=== PATIENT | male | born 1960 | race Caucasian/White ===

== ENCOUNTER 2023-09-22 05:22 | Emergency (ER) | payer OTHER, SELFPAY ==
[2023-09-22 05:24] VITALS: BP 126/85; PULSE 88; RESP 16; TEMP 36.5; O2SAT 97
[2023-09-22 05:26] VITALS: O2SAT 96
[2023-09-22 05:27] VITALS: PULSE 88
[2023-09-22 06:00] LABS: Basophils Absolute Auto 0.1 K/mm3 (0.0-0.1); Basophils Percent Auto 1.3 % (0.2-1.2); Eosinophils Absolute Auto 0.5 K/mm3 (0-0.3); Eosinophils Percent Auto 8.5 % (0-4.4); Hematocrit 39.4 % (42.0-52.0); Hemoglobin 12.6 g/dL (14.0-18.0); Immature Granulocyte Absolute 0.01 K/mm3 (0.00-0.031); Immature Granulocyte Percent A 0.2 % (0-0.5); Lymphocytes Absolute Auto 1.64 K/mm3 (0.9-3.2); Lymphocytes Percent Auto 30.4 % (18.3-44.2); Mean Corpuscular Hemoglobin 28.8 pg (26-34); Mean Corpuscular Volume 90.2 fl (80-100); Mean Platelet Volume 9.9 fl (7.4-10.4); Monocytes Absolute Auto 0.7 K/mm3 (0.1-0.6); Monocytes Percent Auto 12.4 % (2.6-8.5); Neutrophils Absolute Auto 2.5 K/mm3 (1.3-6.7); Neutrophils Percent Auto 47.2 % (45.5-73.1); Platelet Count Result 295 k/mm3 (150-375); Red Blood Count 4.37 M/mm3 (4.6-6.20); Red Cell Distribution Width 13.5 % (11.5-14.5); White Blood Count 5.4 K/mm3 (4.5-10.0)
[2023-09-22 06:09] LABS: Alanine Aminotransferase 20 U/L (6-50); Albumin Level 4.3 g/dL (3.5-5.1); Alkaline Phosphatase 72 U/L (38-126); Anion Gap 9 mmol/L (4-12); Aspartate Amino Transferase 30 U/L (17-59); Bilirubin,Total 0.7 mg/dL (0.2-1.3); Blood Urea Nitrogen 9 mg/dL (9-20); Calcium 9.1 mg/dL (8.4-10.2); Carbon Dioxide 22 mmol/L (22-30); Chloride 106 mmol/L (98-107); Estimated CRCL calculation 70 ml/min; Estimated Glomerular Filt Rate > 60; Glucose 121 mg/dL (65-110); Potassium 3.5 mmol/L (3.4-5.0); Sodium 137 mmol/L (137-145)
--- NOTE | 2023-09-22 06:12 | ED.GENADULT ---
HPI - General Adult General Chief complaint: Seizure Stated complaint: altered mental status/seizure Time Seen by Provider: 09/22/23 05:40 History of Present Illness HPI narrative: Patient is a 7-year-old gentleman who presents emergency department with chief complaint of seizure. Patient has prior history of seizure disorder and takes Keppra. The patient reports he missed his dose of Keppra this evening and then had a generalized seizure and was confused afterwards. The patient reports that he is back to normal now and reports that he has no complaints. Related Data Allergies Allergy/AdvReac Type Severity Reaction Status Date / Time No Known Allergies Allergy Verified 09/22/23 05:52 Review of Systems Review of Systems: A 10 system review of systems was completed on the patient and is negative except for what is stated in the HPI. Nursing and ancillary documentation was reviewed. Exam Narrative: GENERAL: Well-appearing, well-nourished, and in no acute distress. HEAD: Normocephalic, atraumatic. EYES: PERRLA and EOMI. ENT: Nares clear, no rhinorrhea or epistaxis. Mucous membranes moist. NECK: Supple. CHEST: Clear to auscultation. No respiratory distress. HEART: Regular rate and rhythm. No murmur heard. Normal peripheral pulses. ABDOMEN: Soft, nontender, nondistended, normal active bowel sounds. EXTREMITIES: Normal range of motion. No edema. SKIN: Warm, dry, no rash. NEURO: No focal deficits. Alert and oriented x3. PSYCH: Normal mood and affect. Course Vital Signs Vital signs: Vital Signs Temperature 36.5 C 09/22/23 05:24 Pulse Rate 88 09/22/23 05:24 Respiratory Rate 16 09/22/23 05:24 Blood Pressure 126/85 09/22/23 05:24 Pulse Oximetry 97 09/22/23 05:24 Oxygen Delivery Room Air 09/22/23 05:24 Temperature 36.5 C 09/22/23 05:24 Pulse Rate 88 09/22/23 05:27 Respiratory Rate 16 09/22/23 05:24 Blood Pressure 126/85 09/22/23 05:24 Pulse Oximetry 96 09/22/23 05:26 Oxygen Delivery Room Air 09/22/23 05:26 Medical Decision Making [facility] Narrative Medical decision making narrative: Differential diagnosis includes chronic seizure disorder, noncompliance with medications, electrolyte abnormality, infection Patient reported to missing a dose of his medications and is currently asymptomatic. The patient was given an IV dose of Keppra in the emergency department will be discharged home to take his normal doses of Keppra. Vital Signs Vital Signs: Vital Signs Temperature 36.5 C 09/22/23 05:24 Pulse Rate 88 09/22/23 05:24 Respiratory Rate 16 09/22/23 05:24 Blood Pressure 126/85 09/22/23 05:24 Pulse Oximetry 97 09/22/23 05:24 Oxygen Delivery Room Air 09/22/23 05:24 Temperature 36.5 C 09/22/23 05:24 Pulse Rate 88 09/22/23 05:27 Respiratory Rate 16 09/22/23 05:24 Blood Pressure 126/85 09/22/23 05:24 Pulse Oximetry 96 09/22/23 05:26 Oxygen Delivery Room Air 09/22/23 05:26 Lab Data 09/22/23 05:54 09/22/23 05:54 Labs: Lab Results 09/22/23 Range/Units 05:54 WBC 5.4 (4.5-10.0) K/mm3 RBC 4.37 L (4.6-6.20) M/mm3 Hgb 12.6 L (14.0-18.0) g/dL Hct 39.4 L (42.0-52.0) % MCV 90.2 (80-100) fl MCH 28.8 (26-34) pg MCHC 32.0 (32-36) g/dl RDW 13.5 (11.5-14.5) % Plt Count 295 (150-375) k/mm3 MPV 9.9 (7.4-10.4) fl Immature Gran % (Auto) 0.2 (0-0.5) % Neut % (Auto) 47.2 (45.5-73.1) % Lymph % (Auto) 30.4 (18.3-44.2) % Hardy % (Auto) 12.4 H (2.6-8.5) % Eos % (Auto) 8.5 H (0-4.4) % Baso % (Auto) 1.3 H (0.2-1.2) % Lymph # (Auto) 1.64 (0.9-3.2) K/mm3 Hardy # (Auto) 0.7 H (0.1-0.6) K/mm3 Eos # (Auto) 0.5 H (0-0.3) K/mm3 Baso # (Auto) 0.1 (0.0-0.1) K/mm3 Abs Immat Gran (auto) 0.01 (0.00-0.031) K/mm3 Absolute Neuts (auto) 2.5 (1.3-6.7) K/mm3 Absolute Nucleated RBC 0.000 (0.0-0.012) K/mm3 Nucleated RBC % 0.0 (0.0-0.2) % Sodium 137
[2023-09-22] MEDS: levETIRAcetam 500MG/NACL 100ML 500 MG/100 ML BAG 400 MG IVPB (06:15)
[2023-09-22 06:37] VITALS: BP 123/81; PULSE 78; RESP 18; O2SAT 99
== END 2023-09-22 06:39 | disposition home or self-care (01) ==
PROVIDERS: Emergency Provider Emergency Medicine
DX: G40.909 Epilepsy, unspecified, not intractable, without status epilepticus (principal)
CPT/HCPCS: 36415; 80053; 85025; 96374; 99284; J1953